=== PATIENT | female | born 1980 | race Caucasian/White ===

== ENCOUNTER → 2019-07-26 | Outpatient (CLI) | payer OTHER ==
--- NOTE | 2019-07-26 15:31 | REP ---
Left foot series: Four views. History: Pain in the left mid foot. Findings: Four views of the left foot demonstrate overall normal mineralization. There is no evidence of fracture or periosteal reaction. Joint spaces are preserved. There is an Achilles calcaneal spur. Impression: Heel spurring. No acute bony abnormality. Electronically Signed by Brian Alvarez MD 07/26/2019 03:22 P
== END ==
LOC: M LRY 14:57
PROVIDERS: ATTEND Nurse Practitioner Family
DX: M79.672 Pain in left foot (principal)

== ENCOUNTER → 2020-03-04 | Outpatient (CLI) | payer OTHER ==
[~2020-03-04] MED LIST: APAP325T4 PO; EQ I1CAP PO
== END ==
LOC: M LABSMTC 08:17
PROVIDERS: ATTEND Anesthesiology
DX: Z01.818 Encounter for other preprocedural examination (principal); Z11.59 Encounter for screening for other viral diseases
CPT/HCPCS: C9803; U0003

== ENCOUNTER 2020-03-07 09:22 | Day surgery (SDC) | payer OTHER ==
[~2020-03-07] VITALS: Ht 157.5 cm; Wt 128.7 kg
[~2020-03-07 09:22] MED LIST changes: +CLINDAMYCIN 900 MG in IV 1 EA IV ONE; +LIDOCAINE 2% 100MG/5ML SDV (FOR ANES.) As Ordered ONE; +LR 1,000 ML IV ONE; +MIDAZOLAM INJ 2MG/2ML VIAL (J2250 PER 1MG) As Ordered ONE; +ONDANSETRON 4MG/2ML VIAL As Ordered ONE; +dexameTHASONE 4 MG/ML 1ML VIAL (J1100 PER 1MG) As Ordered ONE; +fentaNYL 100 MCG/2 ML INJECTION (J3010) As Ordered ONE; +propofoL 200 MG/20 ML VIAL As Ordered ONE
[2020-03-07] MEDS ORDERED: LIDOCAINE 1% MDV 20ML VIAL ONE (09:23)
[2020-03-07] MEDS ORDERED: EPINEPHrine INJ 1 MG/ML 1ML AMP ONE (09:23)
[2020-03-07] MEDS ORDERED: ROPIvacaine 0.5% 30ML INJECTION (J2795 PER 1MG) ONE (09:23)
[2020-03-07] MEDS ORDERED: MIDAZOLAM INJ 2MG/2ML VIAL (J2250 PER 1MG) As Ordered ONE (12:44)
[2020-03-07] MEDS ORDERED: fentaNYL 100 MCG/2 ML INJECTION (J3010) As Ordered ONE ×2 (12:44→15:36)
[2020-03-07] MEDS ORDERED: SCOPOLAMINE 1MG TRANSDERMAL PATCH TOP ONE (13:00)
[2020-03-07] MEDS: MIDAZOLAM INJ 2MG/2ML VIAL (J2250 PER 1MG) IV SCH ×2 (13:08→13:09)
[2020-03-07] MEDS: fentaNYL 100 MCG/2 ML INJECTION (J3010) IV SCH ×2 (13:08→13:09)
[2020-03-07] MEDS ORDERED: ACETAMINOPHEN 1000MG 100ML IV BTL (OFIRMEV) (J0131 PER 10MG) As Ordered ONE (15:20)
[2020-03-07] MEDS ORDERED: SUGAMMADEX SODIUM 500 MG/5 ML VIAL (BRIDION) As Ordered ONE (15:20)
[2020-03-07] MEDS ORDERED: ROCURONIUM BROMIDE 50 MG/5 ML VIAL As Ordered ONE (15:32)
[2020-03-07] MEDS ORDERED: KETAMINE HCL 200 MG/20 ML VIAL As Ordered ONE (15:32)
[2020-03-07] MEDS ORDERED: propofoL 200 MG/20 ML VIAL As Ordered ONE (17:23)
[2020-03-07] MEDS ORDERED: METOCLOPRAMIDE INJ 10MG/2ML VIAL (J2765 PER 1) As Ordered ONE (17:46)
[2020-03-07] MEDS ORDERED: ONDANSETRON 4MG/2ML VIAL IV PRN (18:00)
[2020-03-07] MEDS ORDERED: LR 1,000 ML IV SCH ×2 (18:00)
[2020-03-07] MEDS ORDERED: fentaNYL 100 MCG/2 ML INJECTION (J3010) IV PRN (18:00)
[2020-03-07] MEDS ORDERED: PERCOCET 5MG/325MG TAB PO PRN (18:00)
[2020-03-07] MEDS ORDERED: METOCLOPRAMIDE INJ 10MG/2ML VIAL (J2765 PER 1) IV PRN (18:00)
[2020-03-07 19:20] VITALS: BP 138/91
[2020-03-08] MEDS ORDERED: ENOXAPARIN 30MG/0.3ML SYRINGE (J1650 PER 10MG) SC SCH (09:00)
== END 2020-03-07 19:25 | disposition home or self-care (01) ==
LOC: M SDC 09:22
PROVIDERS: ATTEND Orthopaedic Surgery
DX: M25.372 Other instability, left ankle (principal); K21.9 Gastro-esophageal reflux disease without esophagitis; F41.9 Anxiety disorder, unspecified; E66.9 Obesity, unspecified; Z87.891 Personal history of nicotine dependence; Z88.0 Allergy status to penicillin; Z91.040 Latex allergy status; Z88.1 Allergy status to other antibiotic agents; Z91.018 Allergy to other foods
CPT/HCPCS: 27698; 64445; 81025; 88304; C1713; J0131; J0171; J1100; J2250; J2405; J2795; J3010